=== PATIENT | female | born 1990 | race African-American/Black ===

== ENCOUNTER 2025-02-04 11:23 | Emergency (ER) | payer MEDICAID, OTHER ==
[~2025-02-04] VITALS: Ht 160 cm; Wt 80.0 kg
[~2025-02-04 11:23] MED LIST: PRENATAL VITAMIN
[2025-02-04 11:28] VITALS: O2SAT 96
[2025-02-04] MEDS: ACETAMINOPHEN 325MG TABLET PO ONE (12:13)
[2025-02-04] MEDS: ONDANSETRON 4MG ODT PO ONE (12:31)
[2025-02-04 12:33] LABS: CLARITY URINE CLEAR (CLEAR); COLOR URINE YELLOW (YELLOW); GLUCOSE URINE NEGATIVE (NEGATIVE); KETONES URINE NEGATIVE (NEGATIVE); LEUKOCYTE ESTERASE URINE TRACE (NEGATIVE); NITRITE URINE NEGATIVE (NEGATIVE); OCCULT BLOOD URINE NEGATIVE (NEGATIVE); PH URINE 8.5 (4.5-8.0); PROTEIN URINE NEGATIVE (NEGATIVE)
[2025-02-04 12:35] LABS: BASOPHILS % 0.5 % (0.0-2.0); EOSINOPHILS % 0.5 % (0.0-5.0); HEMATOCRIT. 41.1 % (36.0-48.0); HEMOGLOBIN. 13.9 g/dL (12.0-16.0); LYMPHOCYTES % 24.3 % (20.0-50.0); MEAN CORPUSCULAR HEMOGLOBIN 31.9 pg (28.0-32.0); MEAN CORPUSCULAR HGB CONC 33.7 g/dL (31.0-37.0); MEAN CORPUSCULAR VOLUME 94.6 fL (81.0-99.0); MEAN PLATELET VOLUME 8.8 fl (7.4-10.4); MONOCYTES % 7.9 % (2.0-8.0); NEUTROPHILS % 66.8 % (40.0-76.0); PLATELET 308 x1000/uL (130-400); RED BLOOD CELL COUNT 4.34 mill/uL (4.2-5.4); RED CELL DISTRIBUTION WIDTH 13.9 % (11.6-14.6); WHITE BLOOD COUNT 10.6 x1000/uL (4.5-11.0)
[2025-02-04 12:44] LABS: CHLORIDE 105 mEq/L (98-107); POTASSIUM 3.9 mEq/L (3.5-5.1); SODIUM 137 mEq/L (136-145)
[2025-02-04 12:45] LABS: CALCIUM 10.3 mg/dL (8.7-10.4); CARBON DIOXIDE 21 mEq/L (21-32)
[2025-02-04 12:50] LABS: CREATININE 0.8 mg/dL (0.6-1.0); GLUCOSE 97 mg/dL (70-105); UREA NITROGEN BLOOD 6 mg/dL (9-23)
[2025-02-04 12:52] LABS: ALANINE AMINOTRANSFERASE 17 IU/L (10-49); ALBUMIN 4.4 g/dL (3.2-4.8); ASPARTATE AMINOTRANSFERASE 18 IU/L (<34); BILIRUBIN DIRECT 0.3 mg/dL (<=3.0); BILIRUBIN TOTAL 0.8 mg/dL (0.1-1.0); PROTEIN TOTAL 7.1 g/dL (6.0-8.3)
[2025-02-04 12:53] LABS: B-HCG QUANTITATIVE > 1000 mIU/mL (<6)
[2025-02-04 13:32] LABS: BACTERIA URINE TRACE; SQUAMOUS EPITHELIAL CELL URINE 3+ /lpf (RARE/1+)
[2025-02-04 13:33] LABS: MUCUS URINE TRACE /lpf (< = 2+); RBC URINE 0-2 /hpf (0-2); WBC URINE 0-2 /hpf (0-2)
[2025-02-04] MEDS ORDERED: ONDA-239 PO (14:40)
[2025-02-04] MEDS ORDERED: TOPUD MT (14:40)
[2025-02-04] MEDS ORDERED: CEFP100T8 MT (14:56)
[2025-02-04 15:01] VITALS: BP 111/81; PULSE 65; RESP 20; TEMP 36.7; O2SAT 100
== END 2025-02-04 15:03 | disposition home or self-care (01) ==
LOC: ER 12:27
DX: O26.891 Other specified pregnancy related conditions, first trimester (principal); O23.41 Unspecified infection of urinary tract in pregnancy, first trimester; R10.2 Pelvic and perineal pain; Z3A.01 Less than 8 weeks gestation of pregnancy; Z79.899 Other long term (current) drug therapy
CPT/HCPCS: 80076; 80048; 81003; 81025; 84702; 83690; 85025; 36415; 76801; 76817; 99284; Q0162; Z7610; A4606